=== PATIENT | male | born 1995 | race Caucasian/White ===

== ENCOUNTER → 2019-12-28 | Outpatient (CLI) | payer OTHER ==
[2019-12-28 10:10] LABS: SEMEN APPEARANCE OPAQUE (OPAQUE); SEMEN VISCOSITY LIQUID (LIQUID); SEMEN VOLUME 3.1 ml (2.0-5.0); WBC CONCENTRATION <=1 M/ml (<=1 M/ml)
[2019-12-28 10:11] LABS: SPERM CONCENTRATION 83.8 M/ml (>=15.0)
[2019-12-28 11:36] LABS: FOLLICLE STIMULATING HORMONE 4.6 mIU/mL (1.4-18.1); LUTEINIZING HORMONE 1.5 mIU/mL (1.5-9.3); PROLACTIN 11.4 NG/ML (2.1-17.7)
== END ==
LOC: M LAB 09:14
PROVIDERS: ATTEND Nurse Practitioner Family
DX: N46.9 Male infertility, unspecified (principal)